=== PATIENT | female | born 1985 | race African-American/Black ===

== ENCOUNTER 2025-03-26 20:15 | Emergency (ER) | payer OTHER, MEDICAID ==
[~2025-03-26] VITALS: Ht 170.2 cm; Wt 87.0 kg
[2025-03-26 20:20] VITALS: BP 136/91; PULSE 77; RESP 16; TEMP 36.6; O2SAT 98
== END 2025-03-26 22:36 | disposition left against medical advice (07) ==
LOC: ER 20:15
DX: S80.812A Abrasion, left lower leg, initial encounter (principal); S40.212A Abrasion of left shoulder, initial encounter; S50.811A Abrasion of right forearm, initial encounter; V89.2XXA Person injured in unspecified motor-vehicle accident, traffic, initial encounter; Y93.89 Activity, other specified; Y92.89 Other specified places as the place of occurrence of the external cause; Y99.8 Other external cause status
CPT/HCPCS: 99281